=== PATIENT | male | born 2000 | race Caucasian/White ===

== ENCOUNTER 2024-06-20 16:09 | Emergency (ER) | payer SELFPAY ==
[2024-06-20 16:30] VITALS: BP 108/75; PULSE 80; RESP 16; TEMP 36.8; O2SAT 100; BMI 22.6
--- NOTE | 2024-06-20 17:09 | ED_ITS ---
Discharge Plan Disposition Patient Disposition: Home, Self-Care Condition: Good Prescriptions Prescriptions: New sulfamethoxazole-trimethoprim [Bactrim DS] 800-160 mg tablet 1 tab PO BID 7 Days Qty: 14 0RF Referrals Follow up/Referrals: Favian Zapata MD [Staff Physician] - See instructions Provider,MD Mary [Primary Care Provider] - See instructions Seth Cabello MD [Staff Physician] - See instructions Activity Restrictions/Add. Instructions Additional Instructions/Restrictions: You were evaluated in the emergency department today. 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 If your lesion recurs, please follow-up with general surgery. I provided you with information. Take Tylenol and ibuprofen as needed for pain. Expect some continued mild drainage from your shoulder, which may be bloody. Keep it clean and dry. Do not submerge underwater until healed. Clinical Impressions Clinical Impression: Infected cyst of skin Stand Alone Forms Stand Alone Forms: Work/School Release Instructions Patient Instructions: DI for Skin Abscess, DI for Incision and Drainage Print Language Print Language: Hebrew Discharge ED Provider: Frances Grossman General Adult HPI General Chief complaint: Skin/Abscess/Foreign Body Stated complaint: Bump on left shoulder for yr hurting Time Seen by Provider: 06/20/24 16:29 Mode of Arrival: Ambulatory Source of Information: Patient Description of Symptoms (Recalled from ER Triage Doc. by RN): Patient reports a bump on him left posterior shoulder that has been there for a year. States that approx 3-4 days ago it began to hurt so he came to the ER for further evaluation. History of Present Illness HPI narrative: This patient is a 23-year-old male without significant past medical history presenting to the emergency department for evaluation concern for a bump to his left shoulder. He notes that it has been there for a year and has not bothered him at all, he was told that it was likely a benign cyst or lipoma. He notes that over the last 3 days, its become red, warm, and painful. No fevers or systemic symptoms, no numbness, tingling, or other concerns noted. No known trauma. Related Data Previous Rx's ?Medication ?Instructions ?Recorded sulfamethoxazole 800 1 tab PO BID 7 days #14 tabs 06/20/24 mg-trimethoprim 160 mg tablet (Bactrim DS) Allergies Allergy/AdvReac Type Severity Reaction Status Date / Time No Known Allergies Allergy Verified 06/20/24 16:34 [facility] ON LICENSE OF [facility] Disclaimer: The information contained in this section may have been updated after the patient was seen, as this information can be updated by other users. Social History Smoking Status: Never smoker alcohol intake: never current occupational status: employed Travel in the last 8 weeks?: None ROS Obtained: Yes All systems reviewed & no additional complaints except as documented Physical Exam General General appearance: alert and in no apparent distress Head Head exam: atraumatic and normocephalic Eye Eye exam: Present normal appearance, PERRL and EOMI ENT ENT exam: Present normal exam, normal oropharynx, mucous membranes moist and normal external ear exam Neck Neck exam: Present normal inspection, full ROM and trachea midline; Absent tenderness Chest Chest inspection: Present normal inspection and symmetric chest wall rise; Absent tenderness Respiratory Respiratory exam: Present normal lung sounds bilaterally; Absent respiratory distress, wheezes, stridor or accessory muscle use Cardiovascular Cardiovascular exam: Present regular rate and normal rhythm Abdominal Exam Abdominal exam: Present soft; Absent distention, tenderness or guarding Extremities Exam Extremities exam: Present normal inspection, full ROM and normal capillary refill; Absent tenderness or edema Back Exam Back exam: Present full ROM; Absent tenderness Back 1 view image: 2 1. Palpable well-circumscribed mobile lump that is red and warm, no significant red streaking away Neurological Exam Neurological exam: Present alert, oriented X3, CN II-XII intact and normal gait; Absent motor sensory deficit Psychiatric Psychiatric exam: Present normal affect and normal mood Skin Skin exam: Present warm and dry Medical Decision Making Medical Records Medical records reviewed: Yes I reviewed the patient's medical records. Screening: Per USPSTF and CDC recommendations, given the prevalence of disease in our region, it is our hospital?s policy to screen for HIV and viral Hepatitis for all patients aged 18 and over and those with ongoing risk factors. Jef Inquiry Pt receiving controlled substance: No Vital Signs: 06/20/24 16:30 Temperature 98.2 F Temperature Source Oral Pulse Rate [Radial] 80 Respiratory Rate 16 Blood Pressure [Right Arm] 108/75 L Blood Pressure Mean [Right Arm] 86 Blood Pressure Source [Right Arm] Automatic Cuff Blood Pressure Position [Right Arm] Sitting 02 Sat by Pulse Oximetry 100 Oxygen Delivery Method Room Air Lab Data Lab results reviewed: Yes I reviewed the patient's lab results. Orders (Tests/Meds): ED MEDICATIONS Generic Name Dose Route Start Last Admin Trade Name Freq PRN Reason Stop Dose Admin Trimethoprim/Sulfamethoxazole 1 each 06/20/24 18:22 Sulfa/Trimethoprim 1 Tablet PO 06/20/24 18:23 ONCE ONE Discontinued Medications Generic Name Dose Route Start Last Admin Trade Name Freq PRN Reason Stop Dose Admin Lidocaine HCl 20 ml 06/20/24 17:25 06/20/24 17:30 Lidocaine 1% 20ml Mdv IJ 06/20/24 17:26 20 ml ONCE ONE Administration ORDERS Category Date Time Status POCUS Point of Care (ER Only) Stat Exams 06/20/24 17:00 Ordered Wound Culture and Gram Stain Stat Micro 06/20/24 18:15 Received Medical Decision Narrative: In summary, this patient is a 23-year-old male presenting to the Emergency Department for evaluation of a lump on his left shoulder this been there for a year but only has become red, warm, and painful for the last 3 days. Differential diagnoses considered include but are not limited to infected cyst, cellulitis, abscess. Ruling out the most morbid conditions drove assessment. On exam, the patient has a red, warm palpable lump to the left shoulder with no significant red streaking away. Workup included bedside ultrasound to evaluate for fluid collection amenable to drainage. Soft tissue ultrasound is concerning for 1 cm fluid collection in the left shoulder/upper back. I discussed with the patient that this could be a cyst that has become infected versus some other walled off structure, and I advised that we can either drain it here at bedside or have him follow-up with surgery for possible excision versus drainage. He elects to proceed with incision and drainage here after thorough explanation of risk versus benefit including pain, bleeding, recurrence of lesion. Incision and drainage was performed, with thick yellow material and minimal blood expressed from the lesion. I was able to use curved hemostats to remove the sac surrounding the cyst. Wound culture was sent and is pending. Patient tolerated this well with hemostasis achieved afterward, sterile dressing applied. He was given oral Bactrim given the redness and warmth surrounding this area and concern for skin/soft tissue infection. At this time, I feel that he is appropriate for discharge home. I provided him with information for surgery referral should it recur and give him instructions for supportive management as well as strict return precautions. He was discharged after all questions were answered Procedures Abscess I/D Site: back Side (if applicable): left Local Anesthetic: lidocaine 1% Amount of anesthesia used (mL): 1 Technique: incised with #11 blade Amount of fluid expressed (mL): 10 Irrigation: Yes Packing used?: none Complications: other (No complications) Limited Ultrasound Interpretation:: Limited soft tissue ultrasound Indication: Soft tissue swelling, redness, and pain Identified structures: Location: Left shoulder Findings: 1 cm fluid collection consistent with abscess/infected cyst Impression: Abscess of soft tissue Images were to permanent archive The study was technically adequate Soft Tissue CPT Codes: CPT Neck: 94861-75 CPT Upper extremity: 28466-71 CPT Axilla: 65201-67 CPT Chest wall: 82822-90 CPT Breast: 91413-55-GR/LT (complete), 77212-10-KI/LT (limited), CPT Upper Back: 05741-75 CPT Lower Back: 40025-24 CPT Abdominal Wall: 93174-51 CPT Pelvic Wall: 00677-00 CPT Lower Extremity: 93126-28 CPT Other Soft Tissue: 91188-94 This study was performed by me, and I personally interpreted all images/videos. Based on my clinical judgement, these images were adequate and did not necessitate further imaging. Critical Care Critical Care Time Critical Care Time: No
[2024-06-20] MEDS: LIDOCAINE 1% 20ML MDV 20 ML IJ (17:30)
[2024-06-20] MEDS: SULFA/TRIMETHOPRIM 1 TABLET 1 EACH PO (18:30)
[2024-06-20 18:33] VITALS: BP 121/64; PULSE 62; RESP 18; TEMP 37.1; O2SAT 99
--- NOTE | 2024-06-27 18:27 | PC.NURSE ---
I discussed the pts wound culture with . no change needed to treatment plan.
== END 2024-06-20 18:36 | disposition home or self-care (01) ==
PROVIDERS: Emergency Provider Emergency Medicine
DX: L02.212 Cutaneous abscess of back [any part, except buttock and flank] (principal); L08.9 Local infection of the skin and subcutaneous tissue, unspecified; B96.6 Bacteroides fragilis [B. fragilis] as the cause of diseases classified elsewhere
CPT/HCPCS: 10060; 10061; 87070; 87077; 87186; 87205; 99284; J2003